=== PATIENT | male | born 1960 | race Caucasian/White ===

== ENCOUNTER 2020-06-28 09:46 | Observation (INO) ==
[2020-06-28] MEDS ORDERED: Ondansetron 4 MG/2 ML VIAL IVP PRN (11:01)
[2020-06-28] MEDS ORDERED: Naloxone 0.4 MG/ML INJ IVP PRN (11:01)
[2020-06-28] MEDS ORDERED: Acetaminophen IV 1,000 MG/100 ML BAG IVPB PRN (12:50)
[2020-06-28] MEDS: Piperacillin/Tazobactam 3.375 GM in 0.9 % Sodium Chloride Mini Bag 100 ML IVPB SCH (15:29)
[2020-06-28] MEDS ORDERED: Lidocaine -MPF 2% 2 ML VIAL ONE (22:17)
[2020-06-28] MEDS ORDERED: *HR* FentaNYL (PF) 100 MCG/2 ML VIAL ONE (22:17)
[2020-06-28] MEDS ORDERED: *HR* Propofol 200 MG/20 ML VIAL IVP ONE (22:17)
[2020-06-28] MEDS ORDERED: *HR* Midazolam HCl 2 MG/2 ML VIAL ONE (22:17)
[2020-06-28] MEDS ORDERED: *HR* Magnesium Sulfate 1 GM/2 ML VIAL ONE (22:20)
[2020-06-28] MEDS ORDERED: Famotidine 20 MG/2 ML VIAL ONE (22:27)
[2020-06-28] MEDS ORDERED: Acetaminophen IV 1,000 MG/100 ML BAG IVPB ONE (22:27)
[2020-06-28] MEDS ORDERED: Dexamethasone 4 MG/ML VIAL ONE (22:42)
[2020-06-28] MEDS ORDERED: Ketorolac 30 MG/ML VIAL ONE (22:44)
[2020-06-29] MEDS: Piperacillin/Tazobactam 3.375 GM in 0.9 % Sodium Chloride Mini Bag 100 ML IVPB SCH (01:05)
[2020-06-29] MEDS ORDERED: Acetaminophen IV 1,000 MG/100 ML BAG IVPB PRN (06:59)
[2020-06-29] MEDS ORDERED: Naloxone 0.4 MG/ML INJ IVP PRN (06:59)
[2020-06-29] MEDS ORDERED: Ondansetron 4 MG/2 ML VIAL IVP PRN (06:59)
[2020-06-29 07:42] VITALS: BP 113/70
[2020-06-29] MEDS ORDERED: Piperacillin/Tazobactam 3.375 GM in 0.9 % Sodium Chloride Mini Bag 100 ML IVPB SCH (08:00)
== END 2020-06-29 12:28 | disposition home or self-care (01) ==
LOC: 3BNU
PROVIDERS: ADMIT Surgery; ATTEND Surgery